=== PATIENT | male | born 1970 | race Caucasian/White ===

== ENCOUNTER 2016-09-20 17:36 | Emergency (ER) | payer SELFPAY ==
[2016-09-20 17:59] VITALS: BP 113/67
[2016-09-20] MEDS ORDERED: Orphenadrine 100 MG Tab.ER PO ONE (18:25)
[2016-09-20] MEDS ORDERED: Acetaminophen/HYDROcodone 325-5 MG Tab PO ONE (18:25)
--- NOTE | 2016-09-20 18:34 | EDM.PDOC ---
ED HPI LOWER BACK PAIN/INJURY - General Chief Complaint: Back Pain or Injury Stated Complaint: BACK PAIN Time Seen by Provider: 09/20/16 18:13 Source of Information: Reports: Patient History Limitations: Reports: No limitations - History of Present Illness INITIAL COMMENTS - FREE TEXT/NARRATIVE: Patient is a 46-year-old male who was helping his friend move boxes and furniture into his basement. States he developed pain to the left/middle/right lower back that radiates upward to both shoulders. Pain is worsened with coughing which he states is chronic with no recent change. He has a history of asthma and chronic bronchitis. Pain is constant described as achy sensation with waxing and waning in intensity. Currently the pain is 8/10. Again this pain is worsened with coughing and also with movement. He has not taken any [id number] medications. He has attempted to use ice and heat with little improvement. Denies saddle anesthesia, incontinence to urine or stool, sciatica , numbness/tingling to his lower extremities, urinary retention, prior history of injury to his back, or any additional complaints. Timing/Duration: Reports: Constant, Waxing/waning Location: Reports: upper, lower, paraspinal, radiating pain Quality: Reports: Ache, Sharp Severity: severe Place of Occurrence: other (moving furniture) Improves with: Reports: None Worsens with: Reports: Other (Palpation), Movement Context: Reports: lifting, bending Associated Symptoms: Reports: Denies symptoms, Cough (Chronic). Denies: Shortness of breath Treatments STORAGE SPECIALIST: Reports: Other (see below) (None stated) - Related Data Allergies/ADRs: Allergies Allergy/AdvReac Type Severity Reaction Status Date / Time No Known Allergies Allergy Verified 09/20/16 17:59 Home Meds: Home Meds Albuterol [Ventolin HFA] 1 puff INH BID 09/20/16 [History] Budesonide/Formoterol [Symbicort 160-4.5 MCG] 1 puff INH BID PRN 09/20/16 [ History] Dextroamphetamine/Amphetamine [Adderall 20 mg Tablet] 20 mg PO Q8H PRN 09/20/16 [History] Past Medical History Cardiovascular History: Reports: Other (see below) Other Cardiovascular History: cardiac arrest Respiratory History: Reports: Asthma, Pneumonia, recurrent - Past Surgical History Respiratory Surgical History: Reports: Other (see below) Other Respiratory Surgeries/Procedures: bronchoscopy Musculoskeletal Surgical History: Reports: Other (see below) Other Musculoskeletal Surgeries/Procedures:: plastic surgery to forehead Social & Family History - Family History Family Medical History: Noncontributory - Tobacco Use Smoking Status *Q: Current Every Day Smoker Years of Tobacco use: 20 Packs/Tins Daily: 0.5 - Caffeine Use Caffeine Use: Reports: Soda - Alcohol Use Days Per Week of Alcohol Use: 0 Number of Drinks Per Day: 3 Total Drinks Per Week: 0 - Recreational Drug Use Recreational Drug Use: No ED ROS GENERAL - Review of Systems Review Of Systems: See Below Constitutional: Reports: no symptoms Respiratory: Reports: wheezing, cough, sputum. Denies: shortness of breath Cardiovascular: Reports: No symptoms GI/Abdominal: Reports: No symptoms Musculoskeletal: Reports: back pain ( low back pain that radiates up into his shoulders.), muscle pain (Back), muscle stiffness (Back) Neurological: Denies: dizziness, headache, numbness, tingling, difficulty walking, weakness ED EXAM,LOWER BACK PAIN/INJURY - Physical Exam Exam: See Below Exam Limited By: No limitations General Appearance: alert, WD/WN, no apparent distress Ears: hearing grossly normal Nose: normal inspection Throat/Mouth: Normal voice, No airway compromise Neck: normal inspection, supple Respiratory/Chest: no respiratory distress, no accessory muscle use, chest non- tender, wheezing (Expiratory wheezes throughout) Cardiovascular: normal peripheral pulses, regular rate, rhythm GI/Abdominal: normal bowel sounds, soft, non tender Back Exam: normal inspection, decreased range of motion, paraspinal tenderness, other (Pain to the lower right and left back bilaterally that radiates upward to shoulders with coughing. Worsened with palpation. ). No: CVA tenderness (L) , CVA tenderness (R), muscle spasm, vertebral tenderness Extremities: normal inspection, normal range of motion, non-tender, no pedal edema, normal capillary refill Neurological: alert, normal mood/affect, normal dorsiflexion, CN II-XII intact, normal plantar flexion, normal gait, no motor/sensory deficits, oriented x 3, other (no sciatica). No: difficulty walking Psychiatric: normal affect, normal mood Skin Exam: Warm, Dry, Intact, Normal color Course - Vital Signs Last Recorded V/S: Last Vital Signs Temp 97.1 F 09/20/16 17:56 Pulse 105 H 09/20/16 17:56 Resp 16 09/20/16 17:56 BP 113/67 09/20/16 17:56 Pulse Ox 96 09/20/16 17:56 - Orders/Labs/Meds Meds: Medications Discontinued Medications Generic Name Dose Route Start Last Admin Trade Name Cande PRN Reason Stop Dose Admin Acetaminophen/Hydrocodone Bitart 1 tab 09/20/16 18:25 09/20/16 18:43 Dorris 325-5 Mg PO 09/20/16 18:26 1 tab ONETIME ONE Administration Orphenadrine Citrate 100 mg 09/20/16 18:25 09/20/16 18:43 Norflex PO 09/20/16 18:26 100 mg ONETIME ONE Administration - Re-Assessments/Exams Free Text/Narrative Re-Assessment/Exam: 09/20/16 18:29 Ordered Dorris one tab by mouth and also Norflex one tab by mouth. Will discharge patient home with instructions for back strain. Prescription for Dorris and Flexeril have been provided. Departure - Departure Time of Disposition: 18:29 Disposition: Home, Self-Care 01 Condition: good Clinical Impression: Back strain Qualifiers: Encounter type: initial encounter Qualified Code(s): S39.012A - Strain of muscle, fascia and tendon of lower back, initial encounter Instructions: Muscle Strain, [id number], Back Pain, Adult, [id number], Back Injury Prevention, [id number], Pain Medicine Instructions, [id number] Referrals: Nicky Landrum CLINICAL DENTAL TECHNICIAN [Primary Care Provider] - Forms: ED Department Discharge Additional Instructions: For pain take Tylenol 650 mg every 6 hours and Advil 600 mg every 6 hours in alternating fashion. Apply warm compresses to the affected area 6 times daily, 30 minutes in duration, with gentle massage following. Tomorrow can utilize ice after each therapy. Same duration, same frequency, do not place direct on the skin. For severe pain take percocet one tab every 6 hours as needed. I have also provided a muscle relaxer flexeril 10 mg twice a day. Follow up your primary care provider for further evaluation and treatment if this persists. Return back to the ED if he experienced any new or worsening symptoms. Do not drive while taking the flexeril and percocet. No driving this evening since receiving the sedative medication while in the ED. Refrain from any activities that cause worsening pain.
== END 2016-09-20 18:49 | disposition home or self-care (01) ==
LOC: JD.ED 17:36
DX: S39.012A Strain of muscle, fascia and tendon of lower back, initial encounter (principal); J45.909 Unspecified asthma, uncomplicated; Z98.890 Other specified postprocedural states; F17.210 Nicotine dependence, cigarettes, uncomplicated; X50.0XXA Overexertion from strenuous movement or load, initial encounter; Y92.89 Other specified places as the place of occurrence of the external cause
CPT/HCPCS: 99283; A9270

== ENCOUNTER 2016-12-27 17:15 | Emergency (ER) | payer BC, OTHER ==
[2016-12-27 18:16] VITALS: BP 110/92
--- NOTE | 2016-12-27 18:35 | EDM.PDOC ---
ED HPI GENERAL MEDICAL PROBLEM - General Chief Complaint: General Stated Complaint: Cold symptoms Time Seen by Provider: 12/27/16 18:15 Source of Information: Reports: Patient, RN Notes Reviewed History Limitations: Reports: No Limitations - History of Present Illness INITIAL COMMENTS - FREE TEXT/NARRATIVE: 46 year old male presents to the ED with complaints of cold symptoms and needing a note for work for today. He started feeling sick last evening. He feels worn down. He has a sore throat, mild cough, sinus congestion, and seasonal allergy symptoms. No fever or chills. No chest pain, shortness of breath, abdominal pain, nausea, vomiting, diarrhea. Headache Pain Score (Numeric/FACES): 7 - Related Data Allergies Allergy/AdvReac Type Severity Reaction Status Date / Time No Known Allergies Allergy Verified 12/27/16 18:08 Home Meds: Home Meds Albuterol [Ventolin HFA] 1 puff INH BID 09/20/16 [History] Past Medical History HEENT History: Reports: Impaired Vision Cardiovascular History: Reports: Other (See Below) Other Cardiovascular History: cardiac arrest Respiratory History: Reports: Asthma - Past Surgical History GI Surgical History: Reports: Cholecystectomy Social & Family History - Family History Family Medical History: Noncontributory - Tobacco Use Smoking Status *Q: Current Every Day Smoker Years of Tobacco use: 20 Packs/Tins Daily: 0.5 - Caffeine Use Caffeine Use: Reports: Coffee - Alcohol Use Days Per Week of Alcohol Use: 0 Number of Drinks Per Day: 3 Total Drinks Per Week: 0 - Recreational Drug Use Recreational Drug Use: No ED ROS ENT - Review of Systems Review Of Systems: See Below Constitutional: Reports: Fatigue. Denies: Fever, Chills HEENT: Reports: Rhinitis, Sinus Problem, Throat Pain. Denies: Throat Swelling Respiratory: Reports: Cough. Denies: Shortness of Breath Cardiovascular: Reports: No Symptoms. Denies: Chest Pain GI/Abdominal: Reports: No Symptoms. Denies: Abdominal Pain, Nausea, Vomiting Skin: Reports: No Symptoms. Denies: Rash ED EXAM, ENT - Physical Exam Exam: See Below Exam Limited By: No Limitations General Appearance: Alert, WD/WN, No Apparent Distress Ears: Normal External Exam, Normal Canal, Hearing Grossly Normal, Normal TMs ( left), TM Obscured by Cerumen (right) Nose: Normal Inspection, Normal Mucousa Mouth/Throat: Normal Inspection, Normal Oropharynx Respiratory/Chest: No Respiratory Distress, Lungs Clear, Normal Breath Sounds Cardiovascular: Regular Rate, Rhythm GI/Abdominal: Normal Bowel Sounds, Soft, Non-Tender Neurological: Alert, Normal Cognition Skin: Warm, Dry, Intact Course - Vital Signs Last Recorded V/S: Last Vital Signs Temp 98.0 F 12/27/16 18:09 Pulse 109 H 12/27/16 18:09 Resp 16 12/27/16 18:09 BP 110/92 H 12/27/16 18:09 Pulse Ox 98 12/27/16 18:09 Departure - Departure Time of Disposition: 18:32 Disposition: Home, Self-Care 01 Condition: good Clinical Impression: Allergic rhinitis Qualifiers: Chronicity: chronic Allergic rhinitis trigger: unspecified Allergic rhinitis seasonality: seasonal Qualified Code(s): J30.2 - Other seasonal allergic rhinitis Pharyngitis Qualifiers: Pharyngitis/tonsillitis etiology: unspecified etiology Qualified Code(s): J02.9 - Acute pharyngitis, unspecified - Discharge Information Instructions: Pharyngitis, Allergic Rhinitis Referrals: Nicky Landrum DIRECTOR [employer] [Primary Care Provider] - Forms: ED Department Discharge, Return to Work/School Form Additional Instructions: Continue to use allergy medications of your choice as we discussed I recommend the Nedi-pot for sinus congestion and post-nasal drip Tylenol or Ibuprofen as needed for pain Colace (docusate sodium) gel tab, poke a hole in the tab then squeeze liquid in to ear to help loosen ear wax in the right ear Drink at least 80 oz of water per day Follow-up in clinic if not improved in 5-7 days, sooner if worse
== END 2016-12-27 18:58 | disposition home or self-care (01) ==
LOC: JD.ED 17:15
DX: J30.2 Other seasonal allergic rhinitis (principal); J02.9 Acute pharyngitis, unspecified; J45.909 Unspecified asthma, uncomplicated; F17.210 Nicotine dependence, cigarettes, uncomplicated; Z90.49 Acquired absence of other specified parts of digestive tract
CPT/HCPCS: 99282; 99283